=== PATIENT | female | born 1990 | race Caucasian/White ===

== ENCOUNTER 2016-12-28 20:27 | Emergency (ER) | payer OTHER ==
[~2016-12-28 20:27] MED LIST: ANTIBIOTIC; BACTRIM DS TABL1 TA1 PO; BACTRIM DS TABL1 TAB PO; CIPRO PO; CLEOCIN HCL300 M1 PO; FLAGYL PO; FLEXERIL10 MG PO; KEFLEX500 M1 PO; KEFLEX500 M2 PO; KEFLEX500 MG PO; LORTAB 5/500 TA1 TA1 PO; NAPROXEN250 MG PO; NO MEDICATIONS; PEN-VEE K PO; PHENERGAN PR; PHENERGAN25 MG PO; PRENATAL1 TA1 PO; PYRIDIUM PO; ULTRAM PO; ZOFRAN ODT4 MG PO; [UNRECOGNIZED DRUG - OTHER]
== END 2016-12-28 21:53 | disposition home or self-care (01) ==
LOC: SED 20:27
DX: N76.4 Abscess of vulva (principal); F17.210 Nicotine dependence, cigarettes, uncomplicated
CPT/HCPCS: 10060; 56405; 99283

== ENCOUNTER 2017-05-22 02:41 | Emergency (ER) | payer OTHER ==
[~2017-05-22] VITALS: Ht 175.3 cm; Wt 63.5 kg
== END 2017-05-22 05:30 | disposition left against medical advice (07) ==
LOC: CED 02:41
DX: Z53.21 Procedure and treatment not carried out due to patient leaving prior to being seen by health care provider (principal)